=== PATIENT | female | born 2000 | race Caucasian/White ===

== ENCOUNTER 2020-05-01 12:28 | Emergency (ER) | payer OTHER, SELFPAY ==
--- NOTE | 2020-05-01 12:37 | ED.GENADULT ---
HPI - General Adult General Chief complaint: Headache Stated complaint: Migraine Time Seen by Provider: 05/01/20 12:37 Source: patient Mode of arrival: ambulatory Limitations: no limitations History of Present Illness HPI narrative: 19-year-old female patient presents to the [facility] with complaints of a headache that started yesterday. Patient states the headache was toward the back of the head and felt really tight patient also reports some neck and back pain before the headache occurred. Patient states she has sometimes low sensitivity to the light otherwise denies any vision changes. Denies any lightheadedness, dizziness. Denies any nausea, vomiting or diarrhea. Patient was told by her mother when she was younger that she had migraines but typically treated with Tylenol and ibuprofen. Patient states she did take some ibuprofen as well as some smoke some weed yesterday to help with the pain which did not help. Patient rates her pain today at 2 out of 10. Patient denies any or breast-feeding at this time but states that she did start her period about 2 days ago. Related Data Allergies Allergy/AdvReac Type Severity Reaction Status Date / Time No Known Drug Allergies Allergy Other Verified 05/01/20 12:54 Review of Systems Review of Systems: Narrative: CONSTITUTIONAL: Denies fever, chills, or sweats. EYES: Denies visual changes, redness, or discharge. ENT: Denies rhinorrhea, congestion, sore throat, or otalgia. CARDIOVASCULAR: Denies chest pain, palpitations, or edema. RESPIRATORY: Denies cough or dyspnea. GASTROINTESTINAL: Denies abdominal pain, nausea, vomiting, or diarrhea. GENITOURINARY: Denies dysuria or hematuria. SKIN: Denies rash or itching. MUSCULOSKELETAL: Positive neck and back pain, denies joint pain, or myalgia. NEUROLOGIC: Positive headache, denies numbness, or weakness. PSYCHIATRIC: Denies anxiety or depression. PMFSH Comments At the time of my signature I agree with nursing past medical history, surgical, social, and family history. There is no relevant family history pertinent to the presenting complaint. Exam Narrative: Exam Narrative: GENERAL: Well-appearing, well-nourished, and in no acute distress. HEAD: Normocephalic, atraumatic. EYES: PERRLA and EOMI. ENT: Nares clear, no rhinorrhea or epistaxis. Mucous membranes moist. NECK: Supple, no lymphadenopathy. No surface trauma, no soft tissue or muscle tenderness or spasm noted. Trachea midline. No subq emphysema or crepitus. No lisa tenderness, step-offs or deformity to firm Palpation at posterior midline. FROM without limitation or pain, normal flexion, extension,Lateral bending, rotation, and axial load. CHEST: Clear to auscultation. No respiratory distress. HEART: Regular rate and rhythm. No murmur heard. Normal peripheral pulses. ABDOMEN: Soft, nontender, nondistended, normal active bowel sounds. EXTREMITIES: Normal range of motion. No edema. SKIN: Warm, dry, no rash. NEURO: Alert and oriented x4, GCS 15. Cranial nerves II through XII grossly intact. No focal neurological deficits. Normal muscle strength and tone. Normal deep tendon reflexes. Negative Babinski, normal finger to nose coordination he had normal heel to cazares glide. Speech is clear. Normal gait. Negative Romberg and no pronator drift Course Vital Signs Vital signs: Vital Signs Temperature 36.7 C 05/01/20 12:39 Pulse Rate 92 05/01/20 12:39 Respiratory Rate 16 05/01/20 12:39 Blood Pressure 112/69 05/01/20 12:39 Pulse Oximetry 100 05/01/20 12:39 Temperature 36.7 C 05/01/20 12:39 Pulse Rate 92 05/01/20 12:39 Respiratory Rate 16 05/01/20 12:39 Blood Pressure 112/69 05/01/20 12:39 Pulse Oximetry 100 05/01/20 12:39 Vital signs reviewed Medical Decision Making Differential Diagnosis Differential Diagnosis: Differential diagnosis: Migraine, cluster headache, tension headache, sinusitis, dental infection, TMJ problems, pseudotumor cerebri, meningit
[2020-05-01 12:39] VITALS: BP 112/69; PULSE 92; RESP 16; TEMP 36.7; O2SAT 100
[2020-05-03 17:16] LABS: SARS-CoV-2 RNA PCR Negative
== END 2020-05-01 13:09 | disposition home or self-care (01) ==
PROVIDERS: Emergency Provider Nurse Practitioner Family
DX: G44.209 Tension-type headache, unspecified, not intractable (principal); Z20.822 Contact with and (suspected) exposure to COVID-19
CPT/HCPCS: 99203; C9803; G0463; U0003; U0005

== ENCOUNTER 2022-05-26 09:00 | Emergency (ER) | payer OTHER, MEDICAID, SELFPAY ==
[2022-05-26 09:06] VITALS: BP 154/65; PULSE 123; RESP 14; TEMP 36.8; O2SAT 99
--- NOTE | 2022-05-26 09:29 | ED.URI ---
HPI - URI/Sore Throat General Chief Complaint: Upper Respiratory Infection Stated Complaint: sore throat Source: patient and RN notes reviewed History of Present Illness HPI Narrative: 21-year-old female presents urgent care with complaints of sore throat and body aches. Patient states her body aches started yesterday and her sore throat was noticed for the 1st time earlier this morning. Patient reports an intermittent headache. Denies any congestion, ear pain, chest pain, shortness of breath, vomiting, or diarrhea. Patient is 4 weeks . Patient to take ibuprofen this morning for her symptoms. Some parts of this dictation were generated by voice recognition software and may contain typographical and/or grammatical inaccuracies. Related Data Allergies Allergy/AdvReac Type Severity Reaction Status Date / Time No Known Drug Allergies Allergy Other Verified 05/01/20 12:54 Review of Systems Review of Systems: CONSTITUTIONAL: Denies fever, chills, or sweats. EYES: Denies visual changes, redness, or discharge. ENT: Reports sore throat CARDIOVASCULAR: Denies chest pain, palpitations, or edema. RESPIRATORY: Denies cough or dyspnea. GASTROINTESTINAL: Denies abdominal pain, nausea, vomiting, or diarrhea. GENITOURINARY: Denies dysuria or hematuria. SKIN: Denies rash or itching. MUSCULOSKELETAL:Reports myalgia. NEUROLOGIC: Reports headache PMFSH Comments At the time of my signature, I reviewed and agree with the nursing past medical, surgical, social, and family history. There is no relevant family history pertinent to the patient complaint. Exam Narrative: GENERAL: This is a well-nourished, well-developed patient, in no apparent distress. HEAD: normocephalic, atraumatic. EYES: PERRL. Sclera clear/white. Vision is grossly intact. EARS: External ears normal, auditory canals clear and without drainage, TMs normal without perforation. Hearing grossly intact. NOSE: External nose normal with no obvious nasal discharge, nares without redness, no rhinorrhea. THROAT: Posterior pharynx erythemic. Bilateral tonsils 2+ bilaterally with white exudate noted. NECK: lymphadenopathy. CARDIOVASCULAR: Regular rate and rhythm without murmurs, gallops, or rubs. RESPIRATORY: Clear to auscultation. Breath sounds equal bilaterally. No wheezes, rales, or rhonchi. GASTROINTESTINAL: Abdomen soft, non-tender, nondistended. Bowel sounds are active. No hepato-splenomegaly, or palpable masses. No guarding. SKIN: warm, intact with no suspicious lesions or rash, good texture and turgor. NEURO: awake, alert, and oriented to person, place and time. There were no obvious focal neurologic abnormalities. Course Course Level of Care: Express Care Visit Vital Signs Vital signs: Vital Signs Temperature 98.2 F 05/26/22 09:06 Pulse Rate 123 H 05/26/22 09:06 Respiratory Rate 14 05/26/22 09:06 Blood Pressure 154/65 H 05/26/22 09:06 Pulse Oximetry 99 05/26/22 09:06 Oxygen Delivery Room Air 05/26/22 09:06 Temperature 98.2 F 05/26/22 09:06 Pulse Rate 123 H 05/26/22 09:06 Respiratory Rate 14 05/26/22 09:06 Blood Pressure 154/65 H 05/26/22 09:06 Pulse Oximetry 99 05/26/22 09:06 Oxygen Delivery Room Air 05/26/22 09:06 Reviewed MDM - URI/Sore Throat MDM Narrative Medical decision making narrative: After 24 hours on antibiotics throw tooth brush away and start using a new one. Do not share drinks. Take Motrin alternating with Tylenol for pain and fever alternating every 4 hours. Increase fluids, avoid caffeine. Follow up with Primary provider if not getting better this week Differential Diagnosis Differential diagnosis: Likely upper respiratory infection, otitis media and pharyngitis Lab Data Attestation: I reviewed the patient's lab results. Labs: Strep Screen Positive Group A Strep *(Reference Range: Negative)* Critical Care Time Critical
== END 2022-05-26 10:25 | disposition home or self-care (01) ==
PROVIDERS: Emergency Provider Nurse Practitioner Family; PCP Family Medicine
DX: J02.0 Streptococcal pharyngitis (principal)
CPT/HCPCS: 87880; 99213; G0463

== ENCOUNTER 2022-06-29 15:08 | Emergency (ER) | payer OTHER, MEDICAID, SELFPAY ==
[2022-06-29 15:16] VITALS: BP 102/74; PULSE 93; RESP 16; TEMP 36.6; O2SAT 99
--- NOTE | 2022-06-29 15:27 | ED.ANIMALBIT ---
HPI - Animal Bite General Chief Complaint: Animal Bite Stated Complaint: CAT BITE Time Seen by Provider: 06/29/22 15:23 Source: patient and RN notes reviewed Mode of arrival: ambulatory Limitations: dementia History of Present Illness HPI narrative: 21-year-old female presents with concern for cat bite. Reports her cat bit her 2 days ago. Reports the area has more red, tender and slightly swollen. She reports her cat is not vaccinated. She denies any drainage from the area. Denies fever, aches, chills sweats. complaint: animal bite Related Data Allergies Allergy/AdvReac Type Severity Reaction Status Date / Time No Known Drug Allergies Allergy Other Verified 06/29/22 15:25 Review of Systems Review of Systems: CONSTITUTIONAL: Denies malaise, chills, sweats, or fever. EYES: Denies redness, or discharge. ENT: Denies rhinorrhea, congestion, swollen lips, swollen tongue CARDIOVASCULAR: Denies chest pain, palpitations, or edema. RESPIRATORY: Denies cough or dyspnea. GASTROINTESTINAL: Denies abdominal pain, nausea, vomiting SKIN: Reports redness, swelling at the site of the cat bite on her left elbow. Denies purulent drainage, vesicles, bullae, numbness, pain beyond proportion MUSCULOSKELETAL: Denies joint pain or myalgia. NEUROLOGIC: Denies headache. All systems reviewed & are unremarkable except as noted in HPI and below PMFSH Comments At time of signature, agree with nursing past medical, surgical, social and family history. There is no relevant family history pertinent to the presenting complaint Exam Narrative: GENERAL: Well-appearing, well-nourished, and in no acute distress. HEAD: Normocephalic, atraumatic. EYES: PERRLA, conjunctivae clear ENT: Mucous membranes moist. NECK: Supple. No lymphadenopathy CHEST: Clear to auscultation. No respiratory distress. HEART: Regular rate and rhythm. SKIN: Warm, dry. 7 x 5 cm area erythema, induration, tenderness, warmth with sharp margins noted left elbow with for scabbed puncture wounds. No vesicles, bullae, necrosis, ecchymosis, crepitus noted. NEURO: Alert and oriented x3. PSYCH: Normal mood and affect Course Course Emergency Course: Patient is aware of diagnosis, understands and agrees to treatment plan. Anticipatory guidance given. Patient agrees to follow-up as directed and is aware of reasons to seek care at the emergency department. Portions of this record may have been created with voice recognition software Level of Care: Express Care Visit Vital Signs Vital signs: Vital Signs Temperature 98 F 06/29/22 15:16 Pulse Rate 93 06/29/22 15:16 Respiratory Rate 16 06/29/22 15:16 Blood Pressure 102/74 06/29/22 15:16 Pulse Oximetry 99 06/29/22 15:16 Temperature 98 F 06/29/22 15:16 Pulse Rate 93 06/29/22 15:16 Respiratory Rate 16 06/29/22 15:16 Blood Pressure 102/74 06/29/22 15:16 Pulse Oximetry 99 06/29/22 15:16 Reviewed. MDM - Animal Bite MDM Narrative Medical decision making narrative: Exam findings show no acute concerns or changes; patient is non-toxic appearing and is in no distress. Patient is appropriate for outpatient treatment and follow-up. Differential Diagnosis Differential diagnosis: Likely bite by animal, cat bite and rabies contact Critical Care Time Critical Care Time Critical Care Time: No Discharge Plan Discharge Clinical Impression: Cat bite Patient Disposition: Home, Self-Care Condition: Stable Instructions: Antibiotic Form, Animal Bite (ED) Additional Instructions: Please follow up with your Primary Care Doctor within 48-72 hours - call for an appointment. Rest and elevate affected area; apply moist heat 3-4 times daily for 10-15 minutes. Take Motrin 600mg every 8 hours with food for pain. Please take Antibiotics as directed. If you experience any worsening redness, swelling, streaking (red lines), fever or chills please go to the ER Take you cat to the vet to be tested for rabies,
== END 2022-06-29 15:36 | disposition home or self-care (01) ==
PROVIDERS: Emergency Provider Nurse Practitioner
DX: S51.052A Open bite, left elbow, initial encounter (principal); W55.01XA Bitten by cat, initial encounter
CPT/HCPCS: 99213; G0463